=== PATIENT | female | born 1980 | race Caucasian/White ===

== ENCOUNTER → 2021-03-30 02:40 | Outpatient (CLI) | payer OTHER, SELFPAY ==
[2021-03-31 02:21] LABS: SARS-CoV-2 RNA PCR Positive
== END ==
PROVIDERS: PCP Nurse Practitioner Adult Health; Visit Provider Nurse Practitioner Adult Health
DX: U07.1 COVID-19 (principal)
CPT/HCPCS: C9803; U0003; U0005